=== PATIENT | female | born 1950 | race Hispanic/Latino ===

== ENCOUNTER 2017-10-09 12:26 | Observation (INO) | payer MEDICARE ==
[~2017-10-09] VITALS: Ht 154.9 cm; Wt 85.8 kg
[2017-10-09] MEDS ORDERED: ASPIRIN 81 MG CHEW TAB PO ONE ×2 (12:45→19:45)
[2017-10-09 13:50] LABS: BASOPHILS % 0.4 % (0.0-1.0); EOSINOPHILS # (AUTO) 0.1 (0.0-0.4); EOSINOPHILS % 1.1 % (0.0-6.0); HEMATOCRIT 42.5 % (34.2-44.1); LYMPHOCYTES # (AUTO) 1.8 (1.0-3.2); LYMPHOCYTES % 15.9 % (18.0-39.1); MEAN CORPUSCULAR HEMOGLOBIN 28.3 pg (28-32); MEAN CORPUSCULAR HGB CONC 32.9 g/dL (31-35); MEAN CORPUSCULAR VOLUME 85.9 fL (81-99); MONOCYTES # (AUTO) 0.7 (0.2-0.8); MONOCYTES % 6.2 % (4.4-11.3); NEUTROPHILS # (AUTO) 8.6 (2.1-6.9); PLATELET COUNT 283 x10e3/uL (140-360); RED BLOOD COUNT 4.95 x10e6/uL (3.6-5.1); RED CELL DISTRIBUTION WIDTH 14.1 % (11.7-14.4)
[2017-10-09 14:00] LABS: INR 1.04; PROTHROMBIN TIME 12.8 seconds (11.9-14.5)
[2017-10-09 14:08] LABS: ALANINE AMINOTRANSFERASE 22 IU/L (0-55); ALBUMIN 3.6 g/dL (3.5-5.0); ALBUMIN/GLOBULIN RATIO 0.8 (0.8-2.0); ALKALINE PHOSPHATASE 90 IU/L (40-150); ANION GAP 14.4 mmol/L (8-16); BLOOD UREA NITROGEN 15 mg/dL (7-26); BUN/CREATININE RATIO 19 (6-25); CALCIUM 9.5 mg/dL (8.4-10.2); CARBON DIOXIDE 25 mmol/L (22-29); CHLORIDE 107 mmol/L (98-107); CREATINE KINASE 37 IU/L (29-168); EST GLOMERULAR FILTRATION RATE > 60 ML/MIN (60-); GLUCOSE 113 mg/dL (74-118); MAGNESIUM 2.1 MG/DL (1.3-2.1); POTASSIUM 4.4 mmol/L (3.5-5.1); SODIUM 142 mmol/L (136-145)
--- NOTE | 2017-10-09 15:13 | Diagnostic Imaging Report ---
PROCEDURE: A single AP view of the chest. COMPARISON: None. INDICATIONS: chest tightness FINDINGS: Exam limited by soft tissue attenuation from body habitus Lines/tubes: None. Lungs: The lungs are well inflated and grossly clear. There is no evidence of pneumonia or pulmonary edema. Pleura: There is no pleural effusion or pneumothorax. Heart and mediastinum: Mild prominence of the cardiac silhouette, which may be partly due to portable AP projection. Prominence of the left atrial appendage. Pulmonary vasculature is normal. Bones: No acute bony abnormality. IMPRESSION: 1. exam limited by soft tissue attenuation from body habitus. 2. No consolidation or effusion. 3. Mild prominence of the cardiac silhouette, which could be partly due to AP projection. Prominence of the left atrial appendage. Robin Fenton M.D. Dictated by: Robin Fenton M.D. on 10/09/2017 at 15:17 Electronically approved by: Robin Fenton M.D. on 10/09/2017 at 15:17
[2017-10-09] MEDS ORDERED: DEXTROSE 50% SYRINGE 50 ML IV PRN ×3 (15:45)
[2017-10-09] MEDS ORDERED: MORPHINE SULFATE 2 MG/ML SYR IV PRN (15:45)
[2017-10-09] MEDS ORDERED: INSULIN REGULAR, HUMAN 100 UNIT/1 ML 3ML VIAL SQ SCH ×2 (16:30)
[2017-10-09] MEDS: INSULIN REGULAR, HUMAN 100 UNIT/1 ML 3ML VIAL SQ SCH ×2 (16:30→21:00)
[2017-10-09 16:53] VITALS: BP 119/61
[2017-10-09] MEDS ORDERED: LISINOPRIL10 MG PO (16:53)
[2017-10-09 16:56] VITALS: BP 119/61
[2017-10-09 16:58] VITALS: BP 119/61
[2017-10-09 20:00] VITALS: BP_SYST 127; BP_SYST 130; BP_DIAS 68; BP_DIAS 72
--- NOTE | 2017-10-09 20:36 | History and Physical ---
CLINICAL HISTORY: This is a 67-year-old woman admitted via Dr. Colin Mayer's office and to the emergency room because of chest pains lasting for approximately 10 minutes and because of abnormal EKG showing possible old inferior and posterior wall myocardial infarction. This patient denies any previous myocardial infarction or previous chest pains. She is relatively active. 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 On the day of admission, she was sitting down when she noticed chest burning lasting for approximately 10 minutes rated 5 on a scale of 10, not associated with any nausea, vomiting, diaphoresis or shortness of breath. EKG showed possible old inferior and possible old anterior wall myocardial infarction. He was seen in Dr. Mayer's office, referred to the emergency room and hospitalized. PAST MEDICAL HISTORY: Remarkable for tubal ligation. She is scheduled for hysterectomy. FAMILY HISTORY: Mother had hypertension. Father had stroke. Father had from prostate cancer. Sister had diabetes and . PERSONAL AND SOCIAL HISTORY: Denies smoking, drinking, drug abuse. She was a electronic maintenance supervisor. REVIEW OF SYSTEMS: Remarkable for hyperlipidemia, hypertension, prediabetes. MEDICATIONS AT HOME: Lisinopril 10 mg p.o. daily. REVIEW OF SYSTEMS: Noncontributory. PHYSICAL EXAMINATION GENERAL: She is obese, alert, coherent. VITAL SIGNS: Stable. CARDIAC: Jugular veins are not distended. S1, S2 were regular. There is no appreciable murmur. LUNGS: Clear. ABDOMEN: Soft. Bowel sounds are present. EXTREMITIES: Showed no cyanosis, clubbing, edema. IMPRESSIONS 1. Atypical chest pains lasted for approximately 10 minutes, rated 5 on a scale of 10, described as burning. Not related to exertion, with abnormal EKG showing possible old anterior and inferior wall myocardial infarction, but she has no documentation of such. Consider coronary artery disease. 2. Prediabetes. 3. Hyperlipidemia. 4. Hypertension. 5. Obesity. 6. History of tubal ligation. RECOMMENDATIONS: Nuclear stress test. Job#: [id number] CQ cc:COLIN MAYER MD
[2017-10-09 21:47] LABS: CREATINE KINASE MB 0.7 ng/mL (0-5.0)
[2017-10-10] VITALS: BP 105/59
[2017-10-10 04:00] VITALS: BP 112/62
[2017-10-10 06:55] LABS: CHOL/HDL RATIO 5.3 (3.0-3.6); CHOLESTEROL 201 MD/DL (0-199); CREATINE KINASE 25 IU/L (29-168); HDL CHOLESTEROL 38 MG/DL (40-60); LDL CHOLESTEROL 146 MG/DL (60-130); TRIGLYCERIDES 86 MG/DL (0-149)
[2017-10-10] MEDS: INSULIN REGULAR, HUMAN 100 UNIT/1 ML 3ML VIAL SQ SCH (07:30)
[2017-10-10 07:41] VITALS: BP 136/73
[2017-10-10] MEDS ORDERED: REGADENOSON 0.4 MG/5 ML SYR IV ONE (08:09)
[2017-10-10] MEDS ORDERED: ASPIRIN 325 MG TAB EC PO SCH (09:00)
[2017-10-10] MEDS ORDERED: LISINOPRIL 20 MG TAB PO SCH (09:00)
--- NOTE | 2017-10-10 10:35 | Cardiology Report ---
DATE OF STUDY: October 09, 2017 ECHOCARDIOGRAM M-MODE: Normal chamber wall dimensions. Normal contractility. Normal mitral and aortic valves. No pericardial effusion. SECTOR SCAN: Normal chamber wall dimensions. Normal contractility. Normal mitral, aortic and tricuspid valves. Anterior echo-free space consistent with epicardial fat pad or small anterior pericardial effusion. CARDIAC DOPPLER STUDY WITH COLOR: Trace mitral regurgitation. CONCLUSIONS 1. Small anterior echo-free space measuring 0.2 cm, probably representing epicardial fat pad, although small anterior pericardial effusion cannot be excluded. 2. Trace mitral regurgitation. 3. Left ventricular ejection fraction is approximately 60%. Job#: [id number]
--- NOTE | 2017-10-10 11:10 | Discharge Summary ---
CLINICAL HISTORY: This is a 67-year-old woman admitted via Dr. Colin Mayer's office in the emergency room because of episode of chest pain. Please refer to my previous dictation concerning details of current illness, past medical history, personal and social history, family history, review of systems, physical examination, and initial laboratory studies. HOSPITAL COURSE: Her CBC showed a white count 11,000, hemoglobin was normal at 14 and platelet count 283,000. The cholesterol was 201 with LDL of 146. Electrolytes were normal. Troponin was normal on 3 separate occasions. She underwent Lexiscan nuclear stress test showing no definite ischemic changes. Echocardiogram showed anterior epicardial fat pad versus small pericardial effusion measuring 0.2 cm. The patient was anxious for discharge. Will follow on an outpatient basis. The patient was informed if she has worsening chest pains, she may need to have a cardiac catheterization to be sure. The nuclear images were somewhat inconclusive, but no definite ischemic changes can be determined. She is to follow up with Dr. Mayer and me in 1 week. DISCHARGE DIAGNOSES 1. Atypical moderate chest pains lasting for 10 minutes, rated 5 on a scale of 10 described as a burning sensation with Lexiscan nuclear stress test not showing definite ischemic changes with possible degree of inferior attenuation rather than ischemia, and with echocardiogram showing anterior echo free space of 0.2 cm suggestive of epicardial fat pad with anterior pericardial effusion less likely. 2. Prediabetes. 3. Hyperlipidemia. 4. Hypertension. 5. Obesity. 6. History of tubal ligation. ALEXA PANTOJA MD Job#: [id number] RI cc:COLIN MAYER MD
--- NOTE | 2017-10-10 11:12 | Cardiology Report ---
DATE OF STUDY: LEXISCAN NUCLEAR STRESS TEST Following Lexiscan perfusion images showed diminished counts involving the inferior wall. The rest images showed essentially the same. CONCLUSIONS 1. No definite ischemic changes with possible inferior tissue attenuation and less likely ischemia. 2. No significant ST-segment depression with Lexiscan. 3. No complaints of chest pains with Lexiscan although the patient had low abdominal pain. 4. Normal blood pressure response to Lexiscan. 5. No significant arrhythmias with Lexiscan. Job#: [id number] RI
[2017-10-10 11:26] VITALS: BP 124/71
== END 2017-10-10 11:00 | disposition home or self-care (01) ==
LOC: ER 12:26 → ERHOLD 15:51 → IMCU 16:26
PROVIDERS: ADMIT Internal Medicine Cardiovascular Disease; ATTEND Internal Medicine Cardiovascular Disease
DX: R07.89 Other chest pain (principal); R73.03 Prediabetes; E78.5 Hyperlipidemia, unspecified; I10 Essential (primary) hypertension; E66.9 Obesity, unspecified; Z83.3 Family history of diabetes mellitus; Z80.42 Family history of malignant neoplasm of prostate; Z82.3 Family history of stroke; Z82.49 Family history of ischemic heart disease and other diseases of the circulatory system; Z68.35 Body mass index [BMI] 35.0-35.9, adult
CPT/HCPCS: 36415 ×2; 71045; 78452; 80053; 80061; 82550 ×2; 82553 ×2; 82948 ×2; 83735; 83880; 84484 ×2; 85025; 85610; 85730; 93005; 93017; 93306; 99284; A9502; G0378 ×2

== ENCOUNTER 2018-08-09 23:27 | Observation (INO) | payer MEDICARE ==
[~2018-08-09] VITALS: Ht 154.9 cm; Wt 85.7 kg
[~2018-08-09 23:27] MED LIST: LISINOPRIL10 MG PO
--- OUTSIDE RECORDS SUMMARY | 2018-08-09 23:29 | XMS REPORT | Summary of Care ---
Author Author LEONIDES BENDER M.D. Organization Unknown Address [facility] Phone Unavailable Care Team Providers Care Block Placer Name Role Phone LEONIDES BENDER M.D. Unavailable Unavailable Unavailable Unavailable Functional Status Name Dates Details Functional status health issues are not documented Status: Name Dates Details Cognitive status health issues are not documented Status: Problems Name Dates Details Postmenopausal bleeding (627.1, N95.0) Status: Active Thickened endometrium (793.5, R93.8) Status: Active Ovarian cyst (620.2, N83.209) Status: Active Screening for colon cancer (V76.51, Z12.11) Status: Active Medications Name Dates Details Lisinopril 40 MG Oral Tablet * Start : 10-Oct-2017 Active 30 Tablet Bottle Allergies and Adverse Reactions Name Dates Details No Known Drug Allergies (Allergy) Status: Active Past Medical History Name Dates Details History of High blood pressure (401.9, I10) Status: Resolved Procedures Procedure Dates Details [QLH] CBC (INCLUDES DIFF/PLT) Date: 10-Oct-2017 [QLH] CMP W/EGFR Date: 10-Oct-2017 [QLH] MAGNESIUM Date: 10-Oct-2017 [QLH] CA 125 Date: 10-Oct-2017 [QLH] HEMOGLOBIN A1c Date: 10-Oct-2017 US Pelvis with Pelvis Transvaginal [id number] Date: 10-Oct-2017 History of Tubal Ligation Completed Immunization Name Dates Details Immunizations not documented Family History Name Dates Details No pertinent family history (V49.89, Z78.9) Status: Active Social History Name Dates Details - Status: Name Dates Details Never smoker Never smoker Vital Signs Date Test Result Details [id number] BP Systolic 123 mm[Hg] Status: Comments: Location: RUE; Position: Sitting BP Diastolic 80 mm[Hg] Status: Comments: Location: RUE; Position: Sitting Height 146.99 cm Status: Weight 185 lb Status: Body Mass Index Calculated 38.84 kg/m2 Status: Body Surface Area Calculated 1.76 m2 Status: Temperature 97.6 f Status: Comments: Method: Oral Heart Rate 87 /min Status: Respiration Rate 18 /min Status: Results Date Description Value Details Results not documented Plan of Care Name Dates Details Planned Observations Planned Goals not documented Planned Encounters Screening Colonoscopy Referral Follow-up visit in 2 weeks Interventions Provided Labs/Procedures/Imaging* [QLH] CA 125; To Be Done: 10 Oct 2017 * [QLH] CBC (INCLUDES DIFF/PLT); To Be Done: 10 Oct 2017 * [QLH] CMP W/EGFR; To Be Done: 10 Oct 2017 * [[facility]H] HEMOGLOBIN A1c; To Be Done: 10 Oct 2017 * [QLH] MAGNESIUM; To Be Done: 10 Oct 2017 * US Pelvis with Pelvis Transvaginal [id number]; To Be Done: 10 Oct 2017 Discussion/Summary* Pt is a 67 yo HF with a hx of PMB x2 years. * 1) PMB * -repeat TVUS recommended * -Labs checked as last CA125 was 16.4 in 2016, CBC, CMP, Mg, HgA1c * -Hscope D and C with EUA recommended for assessment of endometrium * 2) Recent hospitalization for cardiac work up * -completion of cardiac workup and clearance will be required prior to going to the OR. * RTC 2 weeks post operatively. * Discussed above with patient (spent 45 minutes face to face). Questions answered. Instructions Name Dates Details Instructions not documented Encounters Appointment; LEONIDES BENDER M.D. Encounter Diagnosis: Problem not documented On: 10-Oct-2017 13:00
--- OUTSIDE RECORDS SUMMARY | 2018-08-09 23:29 | XMS REPORT | Continuity of Care Document ---
Author Author Jarett [facility] Interface Address Unknown Phone Unavailable Problems Problem Status Onset Date Classification Date Reported Comments Source Chest pain Active Problem 10/10/2017 [facility] Medications Medication Details Route Status Patient Instructions Ordering Provider Order Date Source Lisinopril 10 Mg Tablet Daily Active [facility] Allergies, Adverse Reactions, Alerts Substance Category Reaction Severity Reaction type Status Date Reported Comments Source Immunizations Immunization Date Given Site Status Last Updated Comments Source Results Order Name Results Value Reference Range Date Interpretation Comments Source Capillary blood glucose measurement by glucometer (mass/volume) Capillary blood glucose measurement by glucometer (mass/volume) 117 70 - 120 10/10/2017 [facility] Serum or plasma cholesterol in HDL measurement (mass/volume) Serum or plasma cholesterol in HDL measurement (mass/volume) 38 40 - 60 10/10/2017 [facility] Serum or plasma cholesterol in LDL measurement (mass/volume) Serum or plasma cholesterol in LDL measurement (mass/volume) 146 60 - 130 10/10/2017 [facility] Serum or plasma cholesterol measurement (mass/volume) Serum or plasma cholesterol measurement (mass/volume) 201 0 - 199 10/10/2017 [facility] Serum or plasma creatine kinase MB measurement (mass/volume) Serum or plasma creatine kinase MB measurement (mass/volume) 0.60 0 - 5.0 10/10/2017 [facility] Serum or plasma creatine kinase measurement (enzymatic activity/volume) Serum or plasma creatine kinase measurement (enzymatic activity/volume) 25 29 - 168 10/10/2017 [facility] Serum or plasma total cholesterol/cholesterol in HDL mass ratio Serum or plasma total cholesterol/cholesterol in HDL mass ratio 5.3 3.0 - 3.6 10/10/2017 [facility] Serum or plasma triglyceride measurement (mass/volume) Serum or plasma triglyceride measurement (mass/volume) 86 0 - 149 10/10/2017 [facility] Troponin I measurement by highly sensitive enzyme immunoassay Troponin I measurement by highly sensitive enzyme immunoassay null 0 - 0.300 10/10/2017 [facility] Activated partial thromboplastin time (aPTT) in platelet poor plasma bycoagulation assay Activated partial thromboplastin time (aPTT) in platelet poor plasma bycoagulation assay 32.0 23.8 - 35.5 10/09/2017 [facility] Automated blood basophil count (count/volume) Automated blood basophil count (count/volume) 0.0 0.0 - 0.1 10/09/2017 [facility] Automated blood basophil count as percentage of total leukocytes Automated blood basophil count as percentage of total leukocytes 0.4 0.0 - 1.0 10/09/2017 [facility] Automated blood eosinophil count Automated blood eosinophil count 0.1 0.0 - 0.4 10/09/2017 [facility] Automated blood eosinophil count as percentage of total leukocytes Automated blood eosinophil count as percentage of total leukocytes 1.1 0.0 - 6.0 10/09/2017 [facility] Automated blood hematocrit (volume fraction) Automated blood hematocrit (volume fraction) 42.5 34.2 - 44.1 10/09/2017 [facility] Automated blood lymphocyte count as percentage ot total leukocytes Automated blood lymphocyte count as percentage ot total leukocytes 15.9 18.0 - 39.1 10/09/2017 [facility] Automated blood monocyte count as percentage of total leukocytes Automated blood monocyte count as percentage of total leukocytes 6.2 4.4 - 11.3 10/09/2017 [facility] Automated blood neutrophil count Automated blood neutrophil count 8.6 2.1 - 6.9 10/09/2017 [facility] Automated blood platelet count (count/volume) Automated blood platelet count (count/volume) 283 140 - 360 10/09/2017 [facility] Automated blood segmented neutrophil count as percentage of total leukocytes Automated blood segmented neutrophil count as percentage of total leukocytes 76.0 38.7 - 80.0 10/09/2017 [facility] Automated erythrocyte mean corpuscular hemoglobin (mass per erythrocyte) Automated erythrocyte mean corpuscular hemoglobin (mass per erythrocyte) 28.3 28 - 32 10/09/2017 [facility] Automated erythrocyte mean corpuscular hemoglobin concentration measurement (mass/volume) Automated erythrocyte mean corpuscular hemoglobin concentration measurement (mass/volume) 32.9 31 - 35 10/09/2017 [facility] Automated erythrocyte mean corpuscular volume Automated erythrocyte mean corpuscular volume 85.9 81 - 99 10/09/2017 [facility] Blood erythrocytes automated count (number/volume) Blood erythrocytes automated count (number/volume) 4.95 3.6 - 5.1 10/09/2017 [facility] Blood hemoglobin measurement (moles/volume) Blood hemoglobin measurement (moles/volume) 14.0 12.0 - 16.0 10/09/2017 [facility] Blood leukocytes automated count (number/volume) Blood leukocytes automated count (number/volume) 11.34 4.8 - 10.8 10/09/2017 [facility] Blood lymphocytes count (number/volume) Blood lymphocytes count (number/volume) 1.8 1.0 - 3.2 10/09/2017 [facility] Blood monocytes automated count (number/volume) Blood monocytes automated count (number/volume) 0.7 0.2 - 0.8 10/09/2017 [facility] Estimated glomerular filtration rate (GFR) determination Estimated glomerular filtration rate (GFR) determination null 60 10/09/2017 [facility] Glucose measurement Glucose measurement 113 74 - 118 10/09/2017 [facility] INR in Platelet poor plasma by Coagulation assay INR in Platelet poor plasma by Coagulation assay 1.04 10/09/2017 [facility] Plasma globulin measurement (mass/volume) Plasma globulin measurement (mass/volume) 4.4 2.3 - 3.5 10/09/2017 [facility] Prothrombin time (PT) in platelet poor plasma by coagulation assay Prothrombin time (PT) in platelet poor plasma by coagulation assay 12.8 11.9 - 14.5 10/09/2017 [facility] Serum or plasma alanine aminotransferase measurement (enzymatic activity/volume) Serum or plasma alanine aminotransferase measurement (enzymatic activity/volume) 22 0 - 55 10/09/2017 [facility] Serum or plasma albumin measurement (mass/volume) Serum or plasma albumin measurement (mass/volume) 3.6 3.5 - 5.0 10/09/2017 [facility] Serum or plasma albumin/globulin mass ratio Serum or plasma albumin/globulin mass ratio 0.8 0.8 - 2.0 10/09/2017 [facility] Serum or plasma alkaline phosphatase measurement (enzymatic activity/volume) Serum or plasma alkaline phosphatase measurement (enzymatic activity/volume) 90 40 - 150 10/09/2017 [facility] Serum or plasma anion gap Serum or plasma anion gap 14.4 8 - 16 10/09/2017 [facility] Serum or plasma calcium measurement (mass/volume) Serum or plasma calcium measurement (mass/volume) 9.5 8.4 - 10.2 10/09/2017 [facility] Serum or plasma carbon dioxide, total measurement (moles/volume) Serum or plasma carbon dioxide, total measurement (moles/volume) 25 22 - 29 10/09/2017 [facility] Serum or plasma chloride measurement (moles/volume) Serum or plasma chloride measurement (moles/volume) 107 98 - 107 10/09/2017 [facility] Serum or plasma creatinine measurement (mass/volume) Serum or plasma creatinine measurement (mass/volume) 0.80 0.57 - 1.11 10/09/2017 [facility] Serum or plasma magnesium measurement (mass/volume) Serum or plasma magnesium measurement (mass/volume) 2.1 1.3 - 2.1 10/09/2017 [facility] Serum or plasma potassium measurement (moles/volume) Serum or plasma potassium measurement (moles/volume) 4.4 3.5 - 5.1 10/09/2017 [facility] Serum or plasma protein measurement (mass/volume) Serum or plasma protein measurement (mass/volume) 8.0 6.5 - 8.1 10/09/2017 [facility] Serum or plasma sodium measurement (moles/volume) Serum or plasma sodium measurement (moles/volume) 142 136 - 145 10/09/2017 [facility] Serum or plasma total bilirubin measurement (mass/volume) Serum or plasma total bilirubin measurement (mass/volume) 0.5 0.2 - 1.2 10/09/2017 [facility] Serum or plasma urea nitrogen measurement (mass/volume) Serum or plasma urea nitrogen measurement (mass/volume) 15 7 - 26 10/09/2017 [facility] Serum or plasma urea nitrogen/creatinine mass ratio Serum or plasma urea nitrogen/creatinine mass ratio 19 6 - 25 10/09/2017 [facility] Red Cell Distribution Width 14.1 11.7 - 14.4 10/09/2017 [facility] IM GRANULOCYTES % 0.4 0.0 - 1.0 10/09/2017 [facility] Absolute Immature Granulocyte (auto 0.05 0 - 0.1 10/09/2017 [facility] Aspartate Amino Transf (AST/SGOT) 14 5 - 34 10/09/2017 [facility] B-Type Natriuretic Peptide 22.2 0 - 100 10/09/2017 [facility] Vital Signs Vital Sign Value Date Comments Source Encounters Location Location Details Encounter Type Encounter Number Reason For Visit Attending Provider ADM Date DC Date Status Source Discharged Inpatient (obs) [id number] ALEXA PANTOJA MD 10/09/2017 10/10/2017 [facility] Procedures Procedure Code Date Perfomer Comments Source
--- NOTE | 2018-08-10 00:55 | Diagnostic Imaging Report ---
EXAMINATION: CHEST SINGLE (PORTABLE) INDICATION: Shortness of breath. COMPARISON: 10/09/17. FINDINGS: TUBES and LINES: None. LUNGS: Lungs are well inflated. Lungs are clear. There is mild prominence of the central pulmonary vasculature, consistent with pulmonary venous congestion. PLEURA: No pleural effusion or pneumothorax. HEART AND MEDIASTINUM: Cardiac size is mildly enlarged. BONES AND SOFT TISSUES: No acute osseous lesion. Soft tissues are unremarkable. UPPER ABDOMEN: No free air under the diaphragm. IMPRESSION: Cardiomegaly. Mild pulmonary venous congestion. Signed by: Dr. Stephie Porter M.D. on 08/10/2018 12:52 AM
[2018-08-10 01:09] LABS: BASOPHILS % 0.4 % (0.0-1.0); EOSINOPHILS # (AUTO) 0.1 (0.0-0.4); EOSINOPHILS % 0.8 % (0.0-6.0); HEMATOCRIT 41.5 % (34.2-44.1); HEMOGLOBIN 13.4 g/dL (12.0-16.0); LYMPHOCYTES % 10.4 % (18.0-39.1); MEAN CORPUSCULAR HEMOGLOBIN 27.3 pg (28-32); MEAN CORPUSCULAR HGB CONC 32.3 g/dL (31-35); MEAN CORPUSCULAR VOLUME 84.5 fL (81-99); MONOCYTES # (AUTO) 0.8 (0.2-0.8); MONOCYTES % 8.4 % (4.4-11.3); NEUTROPHILS # (AUTO) 7.7 (2.1-6.9); NEUTROPHILS % 79.5 % (38.7-80.0); PLATELET COUNT 264 x10e3/uL (140-360); RED BLOOD COUNT 4.91 x10e6/uL (3.6-5.1); RED CELL DISTRIBUTION WIDTH 14.6 % (11.7-14.4)
[2018-08-10 01:23] LABS: CLARITY,URINE CLEAR (CLEAR); COLOR,URINE YELLOW (YELLOW); LEUKOCYTE ESTERASE ,URINE NEGATIVE (NEGATIVE)
[2018-08-10 01:24] LABS: BILIRUBIN,URINE NEGATIVE (NEGATIVE); KETONES,URINE NEGATIVE (NEGATIVE); NITRITE,URINE NEGATIVE (NEGATIVE); PROTEIN,URINE DIPSTICK NEGATIVE (NEGATIVE); URINE UROBILINOGEN 0.2 mg/dL (0.2 - 1)
[2018-08-10 01:28] LABS: BACTERIA,URINE MANY /HPF; EPITHELIAL CELLS,URINE MANY /LPF; WBC,URINE (MAN) 0-5 /HPF (0-5)
[2018-08-10 01:33] LABS: ALANINE AMINOTRANSFERASE 19 IU/L (0-55); ALBUMIN 3.4 g/dL (3.5-5.0); ALBUMIN/GLOBULIN RATIO 0.8 (0.8-2.0); ALKALINE PHOSPHATASE 97 IU/L (40-150); ANION GAP 13.8 mmol/L (8-16); BLOOD UREA NITROGEN 14 mg/dL (7-26); BUN/CREATININE RATIO 16 (6-25); CALCIUM 9.3 mg/dL (8.4-10.2); CARBON DIOXIDE 22 mmol/L (22-29); CHLORIDE 107 mmol/L (98-107); CREATINE KINASE 65 IU/L (29-168); CREATININE, SERUM 0.86 mg/dL (0.57-1.11); EST GLOMERULAR FILTRATION RATE > 60 ML/MIN (60-); GLUCOSE 128 mg/dL (74-118); POTASSIUM 3.8 mmol/L (3.5-5.1); SODIUM 139 mmol/L (136-145)
[2018-08-10] MEDS ORDERED: ONDANSETRON HCL INJ 2MG/ML 2ML 2 MG/ML VIAL IV PRN (01:45)
[2018-08-10 03:00] VITALS: BP 133/66
--- NOTE | 2018-08-10 03:00 | NUR ---
patient is a new admit that arrived via wheelchair. patient is awake and talking. patient has been assisted into the bed. bed is in the lowest position and call swain is within reach.
[2018-08-10 03:22] VITALS: BP 133/66
--- NOTE | 2018-08-10 07:02 | NUR ---
report given to day nurse. patient is resting comfortably in bed. bed is in lowest position and call swain is within reach. will continue to monitor patient.
--- NOTE | 2018-08-10 07:20 | NUR ---
patient resting in bed, alert with no distress, at bed side, call light in reach, not in any distress
[2018-08-10 07:55] VITALS: BP 142/61
[2018-08-10] MEDS ORDERED: ASPIRIN 81 MG ENTERIC COATED PO SCH (09:00)
[2018-08-10 09:30] VITALS: BP 142/61
[2018-08-10 10:05] LABS: CREATINE KINASE 52 IU/L (29-168)
[2018-08-10 11:36] VITALS: BP 154/67
--- NOTE | 2018-08-10 13:22 | NUR ---
SOCIAL WORK INITIAL ASSESSMENT Aircraft Tool Maker to bedside to discuss plan of care with patient/family. CM/SW role and care transitions discussed. Anticipated discharge plan discussed along with duration of care. CM/SW discussed patients right to make decisions in care. CM/SW work hours given. Patient lives: HOUSE WITH FAMILY Admit/Transfer: VIA ED POA/Emergency contact: JEFRY BIRCH [phone] Current/Previous Home Health: NONE PCP/Follow-up Care: GERALDINE Current/Previous DME: NONE Other Services: NONE Employment Status: RETIRED Areas of Concerns: NONE Referral Needs: NONE Education Needs: NONE IMM/NULL given and signed (if applicable):NA Goal for discharge: RETURN HOME CM/SW left business card at the bedside with contact information. Name and number was also written on the patients whiteboard. Patient verbalized understanding of discussion. CM will follow-up with ongoing discharge and transition of care needs.
[2018-08-10] MEDS ORDERED: ALBUTEROL/IPRATROPIUM 3 ML NEB NEB PRN (15:00)
--- NOTE | 2018-08-10 15:09 | NUR ---
H&P cc: sob HPI: 68yoF, PCP , developed DANGELO. Started overnight; no prior; no leg edema; no cp. PMH PreDM, HTN, HLD, Obesity PSHx: tubal ligation Allergies; see emr FH/SH; ; no cigs/etoh Meds; see MAR ROS: no f/c/sN/V/D/CLAIRE/cp/dizziness/vision changes/skin rash v/s; revd PE: nad anicteric ns1s2; no m good bs; no w soft nt nd no e/t a&ox3; peacock skin dry n. affect labs/meds; revd A/P:68yoF Acute bronchitis Cardiomegaly Obesity BMI 35.7 HTN HLD PLAN nebs; O2; f/u labs hab1c/lipids lovenox/pepcid Bora Gonzalez MD, PhD.
[2018-08-10 15:57] VITALS: BP 147/65
[2018-08-10] MEDS ORDERED: FAMOTIDINE 20 MG TAB PO SCH (16:30)
[2018-08-10] MEDS ORDERED: ENOXAPARIN SOD INJ 40 MG/0.4 ML SYR SC SCH (17:00)
[2018-08-10] MEDS ORDERED: ONDANSETRON HCL 4 MG ORAL DISINTEGRATING TAB PO PRN (17:00)
[2018-08-10] MEDS ORDERED: PROVENTIL HFA6.7 GM IH (17:44)
[2018-08-10] MEDS ORDERED: ASPIRIN EC81 MG PO (17:44)
--- NOTE | 2018-08-10 18:14 | NUR ---
Discharge summary Principal dx: Acute bronchitis SEcondary Dx: HTN, HLD, Obesity cc: sob HPI: see H&P Hospital course: 68yoF Acute bronchitis Cardiomegaly Obesity BMI 35.7 HTN HLD PLAN nebs; O2; f/u labs hab1c/lipids lovenox/pepcid LVEF 50-55%; EKG ok; home on zpak and albuterol inhaler. d/c home stable f/u pcp 1 week d/c>35mins Bora Gonzalez MD, PhD.
--- NOTE | 2018-08-10 18:16 | NUR ---
Addendum to d/c summary: D/C home with metoprolol 25mg BID Bora Gonzalez MD, PhD.
[2018-08-11 08:54] LABS: CHOL/HDL RATIO 4.4 (3.0-3.6)
== END 2018-08-10 18:40 | disposition home or self-care (01) ==
LOC: ER 23:27 → ERHOLD 08-10 01:49 → IMCU 08-10 03:10
PROVIDERS: ADMIT Internal Medicine; ATTEND Internal Medicine
DX: J20.9 Acute bronchitis, unspecified (principal); I10 Essential (primary) hypertension; E78.5 Hyperlipidemia, unspecified; E66.9 Obesity, unspecified; Z68.37 Body mass index [BMI] 37.0-37.9, adult; I51.7 Cardiomegaly; R73.03 Prediabetes
CPT/HCPCS: 36415; 71045; 80053; 80061; 81001; 82550; 82553; 83880; 84484; 85025; 93005; 93306; 99284; G0378; J1650

== ENCOUNTER 2018-10-23 14:01 | Emergency (ER) | payer SELFPAY ==
[~2018-10-23] VITALS: Ht 154.9 cm; Wt 85.7 kg
[~2018-10-23 14:01] MED LIST changes: +ASPIRIN EC81 MG PO; +PROVENTIL HFA6.7 GM IH
--- OUTSIDE RECORDS SUMMARY | 2018-10-23 14:04 | XMS REPORT | Continuity of Care Document ---
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 Phone [facility] [employer] Unavailable Unavailable Problems Problem Status Onset Date Classification Date Reported Comments Source Chest pain Active Problem 10/10/2017 [facility] Medications Medication Details Route Status Patient Instructions Ordering Provider Order Date Source Lisinopril 10 Mg Tablet Daily Active [facility] Allergies, Adverse Reactions, Alerts No Known Medication Allergies Immunizations No Data Provided for This Section Results Order Name Results Value Reference Range Date Interpretation Comments Source Capillary blood glucose measurement by glucometer (mass/volume) Capillary blood glucose measurement by glucometer (mass/volume) 117 70 - 120 10/10/2017 [facility] Serum or plasma cholesterol in HDL measurement (mass/volume) Serum or plasma cholesterol in HDL measurement (mass/volume) 38 40 - 60 10/10/2017 [facility] Serum or plasma cholesterol in LDL measurement (mass/volume) Serum or plasma cholesterol in LDL measurement (mass/volume) 146 60 - 130 10/10/2017 [facility] Serum or plasma cholesterol measurement (mass/volume) Serum or plasma cholesterol measurement (mass/volume) 201 0 - 199 10/10/2017 [facility] Serum or plasma creatine kinase MB measurement (mass/volume) Serum or plasma creatine kinase MB measurement (mass/volume) 0.60 0 - 5.0 10/10/2017 [facility] Serum or plasma creatine kinase measurement (enzymatic activity/volume) Serum or plasma creatine kinase measurement (enzymatic activity/volume) 25 29 - 168 10/10/2017 [facility] Serum or plasma total cholesterol/cholesterol in HDL mass ratio Serum or plasma total cholesterol/cholesterol in HDL mass ratio 5.3 3.0 - 3.6 10/10/2017 [facility] Serum or plasma triglyceride measurement (mass/volume) Serum or plasma triglyceride measurement (mass/volume) 86 0 - 149 10/10/2017 [facility] Troponin I measurement by highly sensitive enzyme immunoassay Troponin I measurement by highly sensitive enzyme immunoassay <0.001 0 - 0.300 10/10/2017 [facility] Activated partial thromboplastin time (aPTT) in platelet poor plasma bycoagulation assay Activated partial thromboplastin time (aPTT) in platelet poor plasma bycoagulation assay 32.0 23.8 - 35.5 10/09/2017 [facility] Automated blood basophil count (count/volume) Automated blood basophil count (count/volume) 0.0 0.0 - 0.1 10/09/2017 [facility] Automated blood basophil count as percentage of total leukocytes Automated blood basophil count as percentage of total leukocytes 0.4 0.0 - 1.0 10/09/2017 [facility] Automated blood eosinophil count Automated blood eosinophil count 0.1 0.0 - 0.4 10/09/2017 [facility] Automated blood eosinophil count as percentage of total leukocytes Automated blood eosinophil count as percentage of total leukocytes 1.1 0.0 - 6.0 10/09/2017 [facility] Automated blood hematocrit (volume fraction) Automated blood hematocrit (volume fraction) 42.5 34.2 - 44.1 10/09/2017 [facility] Automated blood lymphocyte count as percentage ot total leukocytes Automated blood lymphocyte count as percentage ot total leukocytes 15.9 18.0 - 39.1 10/09/2017 [facility] Automated blood monocyte count as percentage of total leukocytes Automated blood monocyte count as percentage of total leukocytes 6.2 4.4 - 11.3 10/09/2017 [facility] Automated blood neutrophil count Automated blood neutrophil count 8.6 2.1 - 6.9 10/09/2017 [facility] Automated blood platelet count (count/volume) Automated blood platelet count (count/volume) 283 140 - 360 10/09/2017 [facility] Automated blood segmented neutrophil count as percentage of total leukocytes Automated blood segmented neutrophil count as percentage of total leukocytes 76.0 38.7 - 80.0 10/09/2017 [facility] Automated erythrocyte mean corpuscular hemoglobin (mass per erythrocyte) Automated erythrocyte mean corpuscular hemoglobin (mass per erythrocyte) 28.3 28 - 32 10/09/2017 [facility] Automated erythrocyte mean corpuscular hemoglobin concentration measurement (mass/volume) Automated erythrocyte mean corpuscular hemoglobin concentration measurement (mass/volume) 32.9 31 - 35 10/09/2017 [facility] Automated erythrocyte mean corpuscular volume Automated erythrocyte mean corpuscular volume 85.9 81 - 99 10/09/2017 [facility] Blood erythrocytes automated count (number/volume) Blood erythrocytes automated count (number/volume) 4.95 3.6 - 5.1 10/09/2017 [facility] Blood hemoglobin measurement (moles/volume) Blood hemoglobin measurement (moles/volume) 14.0 12.0 - 16.0 10/09/2017 [facility] Blood leukocytes automated count (number/volume) Blood leukocytes automated count (number/volume) 11.34 4.8 - 10.8 10/09/2017 [facility] Blood lymphocytes count (number/volume) Blood lymphocytes count (number/volume) 1.8 1.0 - 3.2 10/09/2017 [facility] Blood monocytes automated count (number/volume) Blood monocytes automated count (number/volume) 0.7 0.2 - 0.8 10/09/2017 [facility] Estimated glomerular filtration rate (GFR) determination Estimated glomerular filtration rate (GFR) determination >60 60 10/09/2017 [facility] Glucose measurement Glucose measurement 113 74 - 118 10/09/2017 [facility] INR in Platelet poor plasma by Coagulation assay INR in Platelet poor plasma by Coagulation assay 1.04 10/09/2017 [facility] Plasma globulin measurement (mass/volume) Plasma globulin measurement (mass/volume) 4.4 2.3 - 3.5 10/09/2017 [facility] Prothrombin time (PT) in platelet poor plasma by coagulation assay Prothrombin time (PT) in platelet poor plasma by coagulation assay 12.8 11.9 - 14.5 10/09/2017 [facility] Serum or plasma alanine aminotransferase measurement (enzymatic activity/volume) Serum or plasma alanine aminotransferase measurement (enzymatic activity/volume) 22 0 - 55 10/09/2017 [facility] Serum or plasma albumin measurement (mass/volume) Serum or plasma albumin measurement (mass/volume) 3.6 3.5 - 5.0 10/09/2017 [facility] Serum or plasma albumin/globulin mass ratio Serum or plasma albumin/globulin mass ratio 0.8 0.8 - 2.0 10/09/2017 [facility] Serum or plasma alkaline phosphatase measurement (enzymatic activity/volume) Serum or plasma alkaline phosphatase measurement (enzymatic activity/volume) 90 40 - 150 10/09/2017 [facility] Serum or plasma anion gap Serum or plasma anion gap 14.4 8 - 16 10/09/2017 [facility] Serum or plasma calcium measurement (mass/volume) Serum or plasma calcium measurement (mass/volume) 9.5 8.4 - 10.2 10/09/2017 [facility] Serum or plasma carbon dioxide, total measurement (moles/volume) Serum or plasma carbon dioxide, total measurement (moles/volume) 25 22 - 29 10/09/2017 [facility] Serum or plasma chloride measurement (moles/volume) Serum or plasma chloride measurement (moles/volume) 107 98 - 107 10/09/2017 [facility] Serum or plasma creatinine measurement (mass/volume) Serum or plasma creatinine measurement (mass/volume) 0.80 0.57 - 1.11 10/09/2017 [facility] Serum or plasma magnesium measurement (mass/volume) Serum or plasma magnesium measurement (mass/volume) 2.1 1.3 - 2.1 10/09/2017 [facility] Serum or plasma potassium measurement (moles/volume) Serum or plasma potassium measurement (moles/volume) 4.4 3.5 - 5.1 10/09/2017 [facility] Serum or plasma protein measurement (mass/volume) Serum or plasma protein measurement (mass/volume) 8.0 6.5 - 8.1 10/09/2017 [facility] Serum or plasma sodium measurement (moles/volume) Serum or plasma sodium measurement (moles/volume) 142 136 - 145 10/09/2017 [facility] Serum or plasma total bilirubin measurement (mass/volume) Serum or plasma total bilirubin measurement (mass/volume) 0.5 0.2 - 1.2 10/09/2017 [facility] Serum or plasma urea nitrogen measurement (mass/volume) Serum or plasma urea nitrogen measurement (mass/volume) 15 7 - 26 10/09/2017 [facility] Serum or plasma urea nitrogen/creatinine mass ratio Serum or plasma urea nitrogen/creatinine mass ratio 19 6 - 25 10/09/2017 [facility] Red Cell Distribution Width 14.1 11.7 - 14.4 10/09/2017 [facility] IM GRANULOCYTES % 0.4 0.0 - 1.0 10/09/2017 [facility] Absolute Immature Granulocyte (auto 0.05 0 - 0.1 10/09/2017 [facility] Aspartate Amino Transf (AST/SGOT) 14 5 - 34 10/09/2017 [facility] B-Type Natriuretic Peptide 22.2 0 - 100 10/09/2017 [facility] Pathology Reports No Data Provided for This Section Diagnostic Reports No Data Provided for This Section Consultation Notes No Data Provided for This Section Discharge Summaries No Data Provided for This Section History and Physicals No Data Provided for This Section Vital Signs No Data Provided for This Section Encounters Location Location Details Encounter Type Encounter Number Reason For Visit Attending Provider ADM Date DC Date Status Source Discharged Inpatient (obs) [id number] ALEXA PANTOJA MD 10/09/2017 10/10/2017 [facility] Procedures No Data Provided for This Section Assessment and Plan No Data Provided for This Section Plan of Care Plan of Care Date Source Discharge Date 10/10/17 11:00am Disposition HOME, SELF-CARE Instructions/Education Provided Chest Pain - Noncardiac Chest Pain - Chest Wall Prescriptions See Medication Section Referrals COLIN CHANDLER MD (Internal Medicine) Order Date: 5-7 Days Entered Date: 10/10/2017 10:32am Address: [address] [place] [address] [place] [id number] ALEXA PANTOJA MD (Cardiology) Order Date: 5-7 Days Entered Date: 10/10/2017 10:32am Address: [address] [place] [address] [place] [id number] 10/10/2017 [facility] Social History Social History Date Source Social History Problem Response Recorded Date/Time Onset Date Status Hx Psychiatric Problems No 10/09/2017 4:48pm Not Applicable Not Applicable Hx Eating Disorder No 10/09/2017 4:48pm Not Applicable Not Applicable Hx Substance Use Disorder No 10/09/2017 4:48pm Not Applicable Not Applicable Hx Depression No 10/09/2017 4:48pm Not Applicable Not Applicable Hx Alcohol Use No 10/09/2017 4:48pm Not Applicable Not Applicable Hx Substance Use Treatment No 10/09/2017 4:48pm Not Applicable Not Applicable Hx Physical Abuse No 10/09/2017 4:48pm Not Applicable Not Applicable Smoking Status Start Date Stop Date Never Smoker 10/10/2017 [facility] Family History No Data Provided for This Section Advance Directives Order Name Results Value Date Source Advance Directives Advance Directives Directive Response Recorded Date/Time Does the patient have an advance directive? No 10/09/17 4:48pm If yes, is advance directive on file with [facility]? No 10/09/17 4:48pm If not on file with [facility] will patient provide a copy? No 10/09/17 4:48pm Do you have a Directive to Physician? No 10/09/17 1:14pm Do you have a Medical Power of [employer]? No 10/09/17 1:14pm Do you have an out of hospital Do Not Resuscitate Order? No 10/09/17 1:14pm Do you have any special needs we should be aware of? No 10/09/17 1:14pm Do you have a support person here with you today? Yes 10/09/17 1:14pm Did patient receive Notice of Privacy Practices? Yes 10/09/17 1:14pm Did patient receive patient rights and responsibilities? Yes 10/09/17 1:14pm 10/10/2017 [facility] Functional Status No Data Provided for This Section
[2018-10-23 19:32] VITALS: BP 140/66
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
== END 2018-10-23 20:01 | disposition home or self-care (01) ==
LOC: ER 14:01
DX: M54.5 Low back pain (principal); S39.012A Strain of muscle, fascia and tendon of lower back, initial encounter; S20.219A Contusion of unspecified front wall of thorax, initial encounter; V43.52XA Car driver injured in collision with other type car in traffic accident, initial encounter; Y92.488 Other paved roadways as the place of occurrence of the external cause; I10 Essential (primary) hypertension; E11.9 Type 2 diabetes mellitus without complications
CPT/HCPCS: 71046; 93005; 99283

== ENCOUNTER 2021-09-07 02:16 | Emergency (ER) | payer MEDICARE ==
[~2021-09-07] VITALS: Ht 154.9 cm; Wt 85.7 kg
== END 2021-09-07 02:36 | disposition home or self-care (01) ==
LOC: ER 02:20
DX: I10 Essential (primary) hypertension (principal); E11.9 Type 2 diabetes mellitus without complications
CPT/HCPCS: 99282

== ENCOUNTER 2021-11-21 08:54 | Inpatient (IN) | payer MEDICARE ==
[~2021-11-21] VITALS: Ht 154.9 cm; Wt 83.0 kg
[2021-11-21] MEDS ORDERED: SODIUM CHLORIDE 0.9% 1000ML 1,000 ML IV STA (09:13)
[2021-11-21] MEDS ORDERED: ONDANSETRON HCL INJ 2MG/ML 2ML 2 MG/ML VIAL IV STA (09:13)
[2021-11-21 09:32] LABS: BASOPHILS % 0.5 % (0.0-1.0); EOSINOPHILS % 0.2 % (0.0-6.0); HEMATOCRIT 38.4 % (34.2-44.1); HEMOGLOBIN 12.1 g/dL (12.0-16.0); LYMPHOCYTES # (AUTO) 1.3 (1.0-3.2); LYMPHOCYTES % 21.5 % (18.0-39.1); MEAN CORPUSCULAR HEMOGLOBIN 26.2 pg (28-32); MEAN CORPUSCULAR HGB CONC 31.5 g/dL (31-35); MEAN CORPUSCULAR VOLUME 83.3 fL (81-99); MONOCYTES # (AUTO) 0.5 (0.2-0.8); MONOCYTES % 8.5 % (4.4-11.3); NEUTROPHILS # (AUTO) 4.2 (2.1-6.9); NEUTROPHILS % 68.8 % (38.7-80.0); PLATELET COUNT 239 x10e3/uL (140-360); RED BLOOD COUNT 4.61 x10e6/uL (3.6-5.1); RED CELL DISTRIBUTION WIDTH 15.7 % (11.7-14.4)
[2021-11-21] MEDS ORDERED: Morphine 4mg INJECTION 4 MG/ML INJ IV STA (09:35)
[2021-11-21 09:44] LABS: CLARITY,URINE CLEAR (CLEAR); COLOR,URINE YELLOW (YELLOW); KETONES,URINE NEGATIVE (NEGATIVE); LEUKOCYTE ESTERASE ,URINE NEGATIVE (NEGATIVE); NITRITE,URINE NEGATIVE (NEGATIVE); PROTEIN,URINE DIPSTICK 1+ (NEGATIVE)
[2021-11-21 09:45] LABS: URINE UROBILINOGEN 0.2 mg/dL (0.2 - 1)
[2021-11-21 09:49] LABS: INR 1.05; PARTIAL THROMBOPLASTIN TIME 27.7 seconds (23.8-35.5); PROTHROMBIN TIME 14.7 seconds (11.9-14.5)
[2021-11-21] MEDS ORDERED: Morphine 4mg INJECTION 4 MG/ML INJ ONE (09:51)
[2021-11-21 09:57] LABS: ALANINE AMINOTRANSFERASE 108 IU/L (0-55); ALBUMIN 2.9 g/dL (3.5-5.0); ALBUMIN/GLOBULIN RATIO 0.7 (0.8-2.0); ALKALINE PHOSPHATASE 188 IU/L (40-150); ANION GAP 13.2 mmol/L (8-16); BLOOD UREA NITROGEN 14 mg/dL (7-26); BUN/CREATININE RATIO 10 (6-25); CALCIUM 7.9 mg/dL (8.4-10.2); CARBON DIOXIDE 24 mmol/L (22-29); CHLORIDE 107 mmol/L (98-107); CREATINE KINASE 157 IU/L (29-168); CREATININE, SERUM 1.42 mg/dL (0.57-1.11); GLUCOSE 139 mg/dL (74-118); LIPASE 41 U/L (8-78); MAGNESIUM 1.7 MG/DL (1.3-2.1); POTASSIUM 3.2 mmol/L (3.5-5.1); SODIUM 141 mmol/L (136-145)
[2021-11-21] MEDS ORDERED: POTASSIUM CHLORIDE 20 MEQ TAB CR PO STA (10:17)
[2021-11-21 10:18] LABS: BACTERIA,URINE RARE /HPF; EPITHELIAL CELLS,URINE FEW /LPF; TRANSITIONAL EPI CELLS,URINE FEW; WBC,URINE (MAN) 0-5 /HPF (0-5)
[2021-11-21] MEDS ORDERED: ASPIRIN 81 MG CHEW TAB PO ONE (10:30)
[2021-11-21] MEDS ORDERED: IOPAMIDOL 370 MG/ML 100 ML INFUS..BTL INJ ONE (10:42)
[2021-11-21] MEDS ORDERED: HEPARIN 25,000 UNIT 1,100 UNIT in DEXTROSE 5% 250ML 250 ML IV SCH ×2 (10:45→11:00)
[2021-11-21] MEDS ORDERED: HEPARIN SOD (PORCINE) 5,000 UNIT/ML VIAL IV ONE ×2 (11:00→11:30)
[2021-11-21] MEDS ORDERED: NITROGLYCERIN 0.4 MG SUBL SL PRN (11:30)
[2021-11-21] MEDS ORDERED: ONDANSETRON HCL INJ 2MG/ML 2ML 2 MG/ML VIAL IV PRN (11:30)
[2021-11-21] MEDS ORDERED: Morphine 2mg Syringe 2 MG/ML SYR IV PRN (11:30)
[2021-11-21] MEDS ORDERED: HEPARIN 25,000 UNIT DRIP IV ONE (11:36)
[2021-11-21] MEDS: HEPARIN 25,000 UNIT 1,100 UNIT in DEXTROSE 5% 250ML 250 ML IV SCH (11:38)
[2021-11-21] MEDS: FAMOTIDINE 20 MG/2 ML VIAL IV SCH ×2 (11:45→23:40)
[2021-11-21 12:41] VITALS: BP 161/78
[2021-11-21 12:45] VITALS: BP 161/78
[2021-11-21 13:11] VITALS: BP 153/63
[2021-11-21] MEDS: SODIUM CHLORIDE 0.45% 1,000 ML IV SCH (16:53)
[2021-11-21 17:00] VITALS: BP 187/69
[2021-11-21 20:00] VITALS: BP 172/54
[2021-11-21 20:18] VITALS: BP 172/54
[2021-11-22] VITALS (7 sets, daily range): BP systolic 136–164; BP diastolic 52–70
[2021-11-22 04:55] LABS: BASOPHILS # (AUTO) 0.1 (0.0-0.1); BASOPHILS % 0.8 % (0.0-1.0); EOSINOPHILS % 0.5 % (0.0-6.0); HEMATOCRIT 36.2 % (34.2-44.1); HEMOGLOBIN 11.9 g/dL (12.0-16.0); LYMPHOCYTES # (AUTO) 1.2 (1.0-3.2); LYMPHOCYTES % 15.4 % (18.0-39.1); MEAN CORPUSCULAR HEMOGLOBIN 26.5 pg (28-32); MEAN CORPUSCULAR HGB CONC 32.9 g/dL (31-35); MEAN CORPUSCULAR VOLUME 80.6 fL (81-99); MONOCYTES # (AUTO) 0.7 (0.2-0.8); MONOCYTES % 8.9 % (4.4-11.3); NEUTROPHILS # (AUTO) 5.9 (2.1-6.9); NEUTROPHILS % 73.9 % (38.7-80.0); PLATELET COUNT 237 x10e3/uL (140-360); RED BLOOD COUNT 4.49 x10e6/uL (3.6-5.1); RED CELL DISTRIBUTION WIDTH 15.9 % (11.7-14.4)
[2021-11-22 05:20] LABS: ALBUMIN 2.5 g/dL (3.5-5.0); ALBUMIN/GLOBULIN RATIO 0.6 (0.8-2.0); ANION GAP 12.4 mmol/L (8-16); CALCIUM 7.7 mg/dL (8.4-10.2); CHOL/HDL RATIO 5.2 (3.0-3.6); CREATININE, SERUM 1.18 mg/dL (0.57-1.11); POTASSIUM 3.4 mmol/L (3.5-5.1)
[2021-11-22 05:58] LABS: CREATINE KINASE MB 6.3 ng/mL (0-5.0)
[2021-11-22] MEDS: ASPIRIN 81 MG ENTERIC COATED PO SCH ×2 (09:00→10:34)
[2021-11-22] MEDS: CARVEDILOL 12.5 MG TAB PO SCH ×2 (09:08→17:36)
[2021-11-22] MEDS: FUROSEMIDE INJ 10 MG/ML 4 ML VIAL IV SCH (10:20)
[2021-11-22] MEDS: HEPARIN 25,000 UNIT 1,100 UNIT in DEXTROSE 5% 250ML 250 ML IV SCH (10:30)
[2021-11-22] MEDS ORDERED: HEPARIN 25,000 UNIT DRIP IV ONE (10:38)
[2021-11-22] MEDS: FAMOTIDINE 20 MG/2 ML VIAL IV SCH ×2 (11:35→23:11)
[2021-11-22 12:36] LABS: CREATINE KINASE MB 7.8 ng/mL (0-5.0)
[2021-11-22] MEDS: SODIUM CHLORIDE 0.45% 1,000 ML IV SCH (12:51)
[2021-11-22] MEDS ORDERED: POTASSIUM CHLORIDE 20 MEQ TAB CR PO ONE (13:00)
[2021-11-22] MEDS ORDERED: ALBUTEROL SULFATE HFA 8GM INHALATION AEROSOL INH PRN (18:15)
[2021-11-23] VITALS (9 sets, daily range): BP systolic 127–163; BP diastolic 57–109
[2021-11-23 00:30] LABS: CREATINE KINASE MB 7.6 ng/mL (0-5.0)
[2021-11-23] MEDS: SODIUM CHLORIDE 0.45% 1,000 ML IV SCH ×2 (05:08→17:20)
[2021-11-23 06:45] LABS: BASOPHILS # (AUTO) 0.1 (0.0-0.1); BASOPHILS % 0.6 % (0.0-1.0); EOSINOPHILS # (AUTO) 0.3 (0.0-0.4); EOSINOPHILS % 3.2 % (0.0-6.0); HEMATOCRIT 36.7 % (34.2-44.1); HEMOGLOBIN 11.5 g/dL (12.0-16.0); LYMPHOCYTES # (AUTO) 1.4 (1.0-3.2); LYMPHOCYTES % 16.6 % (18.0-39.1); MEAN CORPUSCULAR HEMOGLOBIN 26.1 pg (28-32); MEAN CORPUSCULAR HGB CONC 31.3 g/dL (31-35); MEAN CORPUSCULAR VOLUME 83.2 fL (81-99); MONOCYTES # (AUTO) 0.6 (0.2-0.8); MONOCYTES % 7.5 % (4.4-11.3); NEUTROPHILS # (AUTO) 5.8 (2.1-6.9); NEUTROPHILS % 71.4 % (38.7-80.0); PLATELET COUNT 238 x10e3/uL (140-360); RED BLOOD COUNT 4.41 x10e6/uL (3.6-5.1); RED CELL DISTRIBUTION WIDTH 15.8 % (11.7-14.4)
[2021-11-23 07:13] LABS: ALBUMIN 2.4 g/dL (3.5-5.0); ANION GAP 15.3 mmol/L (8-16); BILIRUBIN,DIRECT 0.8 mg/dL (0.0-0.5); CALCIUM 7.8 mg/dL (8.4-10.2); CREATININE, SERUM 1.15 mg/dL (0.57-1.11); POTASSIUM 3.3 mmol/L (3.5-5.1)
[2021-11-23 07:48] LABS: CREATINE KINASE MB 7.8 ng/mL (0-5.0)
[2021-11-23] MEDS: CARVEDILOL 12.5 MG TAB PO SCH (09:01)
[2021-11-23] MEDS: ASPIRIN 81 MG ENTERIC COATED PO SCH (09:01)
[2021-11-23] MEDS: FUROSEMIDE INJ 10 MG/ML 4 ML VIAL IV SCH ×2 (09:01→17:19)
[2021-11-23] MEDS ORDERED: GUAIFENESIN/CODEINE 5 ML LIQD PO PRN (09:30)
[2021-11-23] MEDS: FAMOTIDINE 20 MG/2 ML VIAL IV SCH ×2 (12:23→23:24)
[2021-11-23 12:46] LABS: CREATINE KINASE MB 8.3 ng/mL (0-5.0)
[2021-11-23] MEDS: HEPARIN 25,000 UNIT 1,100 UNIT in DEXTROSE 5% 250ML 250 ML IV SCH (17:13)
[2021-11-24] VITALS (31 sets, daily range): BP systolic 118–182; BP diastolic 41–96
[2021-11-24 07:02] LABS: BASOPHILS # (AUTO) 0.1 (0.0-0.1); BASOPHILS % 0.7 % (0.0-1.0); EOSINOPHILS # (AUTO) 0.3 (0.0-0.4); EOSINOPHILS % 3.8 % (0.0-6.0); HEMATOCRIT 37.9 % (34.2-44.1); HEMOGLOBIN 12.7 g/dL (12.0-16.0); LYMPHOCYTES # (AUTO) 1.4 (1.0-3.2); LYMPHOCYTES % 18.9 % (18.0-39.1); MEAN CORPUSCULAR HEMOGLOBIN 26.5 pg (28-32); MEAN CORPUSCULAR HGB CONC 33.5 g/dL (31-35); MONOCYTES # (AUTO) 0.6 (0.2-0.8); MONOCYTES % 8.5 % (4.4-11.3); NEUTROPHILS # (AUTO) 4.8 (2.1-6.9); NEUTROPHILS % 67.4 % (38.7-80.0); PLATELET COUNT 248 x10e3/uL (140-360); RED CELL DISTRIBUTION WIDTH 15.7 % (11.7-14.4)
[2021-11-24 07:28] LABS: ALBUMIN 2.5 g/dL (3.5-5.0); ANION GAP 15.4 mmol/L (8-16); BILIRUBIN,DIRECT 0.5 mg/dL (0.0-0.5); CALCIUM 7.8 mg/dL (8.4-10.2); CREATININE, SERUM 1.19 mg/dL (0.57-1.11)
[2021-11-24 07:31] LABS: POTASSIUM 2.4 mmol/L (3.5-5.1)
[2021-11-24] MEDS ORDERED: POTASSIUM CHLORIDE 20MEQ/100ML 100 ML IV ONE ×4 (08:00→22:00)
[2021-11-24] MEDS: FUROSEMIDE INJ 10 MG/ML 4 ML VIAL IV SCH ×2 (09:00→17:54)
[2021-11-24] MEDS ORDERED: HEPARIN SOD/SOD CHLORIDE 2,000 ML ONE (09:10)
[2021-11-24] MEDS ORDERED: SODIUM CHLORIDE 0.9% 1000ML 1,000 ML ONE (09:10)
[2021-11-24] MEDS ORDERED: LIDOCAINE HCL 1% LOCAL INJ 20 ML VIAL ONE (09:10)
[2021-11-24] MEDS ORDERED: IOPAMIDOL 370 MG/ML 100 ML INFUS..BTL INJ ONE (09:10)
[2021-11-24] MEDS ORDERED: POTASSIUM CHLORIDE 20 MEQ TAB CR PO ONE ×2 (09:32→10:00)
[2021-11-24] MEDS ORDERED: MIDAZOLAM HCL 2 MG/2 ML VIAL ONE (09:32)
[2021-11-24] MEDS ORDERED: VERAPAMIL HCL 2.5 MG/ML 2 ML VIAL ONE (09:32)
[2021-11-24] MEDS ORDERED: FENTANYL CITRATE/PF 100MCG/2 ML INJ ONE (09:33)
[2021-11-24] MEDS: FAMOTIDINE 20 MG/2 ML VIAL IV SCH ×2 (11:30→23:40)
[2021-11-24] MEDS: AMLODIPINE BESYLATE 5 MG TAB PO SCH (15:24)
[2021-11-24] MEDS: ASPIRIN 81 MG ENTERIC COATED PO SCH (15:24)
[2021-11-24] MEDS: SODIUM CHLORIDE 0.45% 1,000 ML IV SCH (15:25)
[2021-11-24 17:34] LABS: POTASSIUM 3.1 mmol/L (3.5-5.1)
[2021-11-24] MEDS: HEPARIN 25,000 UNIT 1,100 UNIT in DEXTROSE 5% 250ML 250 ML IV SCH (18:17)
[2021-11-24] MEDS ORDERED: MAGNESIUM SULFATE 2GM/50ML 50 ML IV ONE (20:00)
[2021-11-25] VITALS (24 sets, daily range): BP systolic 92–147; BP diastolic 46–101
[2021-11-25] MEDS: SODIUM CHLORIDE 0.45% 1,000 ML IV SCH (02:26)
[2021-11-25 08:32] LABS: ALBUMIN 2.4 g/dL (3.5-5.0); BILIRUBIN,DIRECT 0.4 mg/dL (0.0-0.5)
[2021-11-25] MEDS: AMLODIPINE BESYLATE 5 MG TAB PO SCH (08:48)
[2021-11-25] MEDS: FUROSEMIDE INJ 10 MG/ML 4 ML VIAL IV SCH ×2 (08:48→17:11)
[2021-11-25] MEDS: ASPIRIN 81 MG ENTERIC COATED PO SCH (08:48)
[2021-11-25] MEDS: LORATADINE 10 MG TAB PO SCH (08:49)
[2021-11-25] MEDS ORDERED: MIDAZOLAM HCL 2 MG/2 ML VIAL ONE (10:41)
[2021-11-25] MEDS ORDERED: FENTANYL CITRATE/PF 100MCG/2 ML INJ ONE (10:42)
[2021-11-25] MEDS: FAMOTIDINE 20 MG/2 ML VIAL IV SCH ×2 (12:29→23:36)
[2021-11-25 15:06] LABS: ALBUMIN 2.6 g/dL (3.5-5.0); ALBUMIN/GLOBULIN RATIO 0.5 (0.8-2.0); ANION GAP 16.9 mmol/L (8-16); CALCIUM 7.7 mg/dL (8.4-10.2); CREATININE, SERUM 1.08 mg/dL (0.57-1.11)
[2021-11-25 15:11] LABS: POTASSIUM 2.9 mmol/L (3.5-5.1)
[2021-11-25] MEDS ORDERED: POTASSIUM CHLORIDE 20 MEQ TAB CR PO ONE (16:10)
[2021-11-25] MEDS: HEPARIN 25,000 UNIT 1,100 UNIT in DEXTROSE 5% 250ML 250 ML IV SCH (17:52)
[2021-11-26] VITALS (18 sets, daily range): BP systolic 86–141; BP diastolic 46–107
[2021-11-26] MEDS: SODIUM CHLORIDE 0.45% 1,000 ML IV SCH (02:38)
[2021-11-26 09:00] LABS: ALBUMIN 2.7 g/dL (3.5-5.0); BILIRUBIN,DIRECT 0.4 mg/dL (0.0-0.5)
[2021-11-26 09:02] LABS: ALBUMIN 2.7 g/dL (3.5-5.0); ALBUMIN/GLOBULIN RATIO 0.5 (0.8-2.0); ANION GAP 18.3 mmol/L (8-16); CALCIUM 7.7 mg/dL (8.4-10.2); CREATININE, SERUM 1.17 mg/dL (0.57-1.11); POTASSIUM 3.3 mmol/L (3.5-5.1)
[2021-11-26] MEDS: LORATADINE 10 MG TAB PO SCH (09:06)
[2021-11-26] MEDS: ASPIRIN 81 MG ENTERIC COATED PO SCH (09:06)
[2021-11-26] MEDS: AMLODIPINE BESYLATE 5 MG TAB PO SCH (09:06)
[2021-11-26] MEDS: FUROSEMIDE INJ 10 MG/ML 4 ML VIAL IV SCH (09:09)
[2021-11-26] MEDS ORDERED: POTASSIUM CHLORIDE 20 MEQ TAB CR PO STA (09:37)
[2021-11-26] MEDS ORDERED: POTASSIUM CHLORIDE 20MEQ/100ML 200 ML IV ONE (09:45)
[2021-11-26] MEDS: FAMOTIDINE 20 MG/2 ML VIAL IV SCH ×2 (12:28→23:29)
[2021-11-26] MEDS: HEPARIN 25,000 UNIT 1,100 UNIT in DEXTROSE 5% 250ML 250 ML IV SCH (12:33)
[2021-11-27] VITALS (7 sets, daily range): BP systolic 126–144; BP diastolic 52–61
[2021-11-27 06:31] LABS: BASOPHILS # (AUTO) 0.1 (0.0-0.1); BASOPHILS % 0.9 % (0.0-1.0); EOSINOPHILS # (AUTO) 0.2 (0.0-0.4); EOSINOPHILS % 3.3 % (0.0-6.0); HEMATOCRIT 37.2 % (34.2-44.1); HEMOGLOBIN 11.9 g/dL (12.0-16.0); LYMPHOCYTES # (AUTO) 1.2 (1.0-3.2); LYMPHOCYTES % 17.5 % (18.0-39.1); MEAN CORPUSCULAR HEMOGLOBIN 25.9 pg (28-32); MONOCYTES # (AUTO) 0.6 (0.2-0.8); MONOCYTES % 8.2 % (4.4-11.3); NEUTROPHILS # (AUTO) 4.9 (2.1-6.9); NEUTROPHILS % 69.7 % (38.7-80.0); PLATELET COUNT 249 x10e3/uL (140-360); RED BLOOD COUNT 4.59 x10e6/uL (3.6-5.1)
[2021-11-27 06:54] LABS: ALBUMIN 2.6 g/dL (3.5-5.0); ALBUMIN/GLOBULIN RATIO 0.6 (0.8-2.0); ANION GAP 15.2 mmol/L (8-16); CALCIUM 7.5 mg/dL (8.4-10.2); CREATININE, SERUM 1.26 mg/dL (0.57-1.11); POTASSIUM 3.2 mmol/L (3.5-5.1)
[2021-11-27] MEDS: ASPIRIN 81 MG ENTERIC COATED PO SCH (09:00)
[2021-11-27 09:11] LABS: ALBUMIN 2.5 g/dL (3.5-5.0); BILIRUBIN,DIRECT 0.3 mg/dL (0.0-0.5)
[2021-11-27] MEDS: FUROSEMIDE INJ 10 MG/ML 4 ML VIAL IV SCH (09:34)
[2021-11-27] MEDS: LORATADINE 10 MG TAB PO SCH (09:34)
[2021-11-27] MEDS: AMLODIPINE BESYLATE 5 MG TAB PO SCH (09:34)
[2021-11-27] MEDS: HEPARIN 25,000 UNIT 1,100 UNIT in DEXTROSE 5% 250ML 250 ML IV SCH (09:45)
[2021-11-27] MEDS ORDERED: POTASSIUM CHLORIDE 20 MEQ TAB CR PO STA (11:24)
[2021-11-27] MEDS: FAMOTIDINE 20 MG/2 ML VIAL IV SCH ×2 (11:30→23:12)
[2021-11-28] VITALS (7 sets, daily range): BP systolic 132–153; BP diastolic 42–71
[2021-11-28 05:47] LABS: BASOPHILS # (AUTO) 0.1 (0.0-0.1); BASOPHILS % 0.6 % (0.0-1.0); EOSINOPHILS # (AUTO) 0.2 (0.0-0.4); EOSINOPHILS % 2.9 % (0.0-6.0); HEMATOCRIT 38.4 % (34.2-44.1); LYMPHOCYTES # (AUTO) 1.6 (1.0-3.2); LYMPHOCYTES % 20.4 % (18.0-39.1); MEAN CORPUSCULAR HEMOGLOBIN 26.1 pg (28-32); MEAN CORPUSCULAR HGB CONC 31.3 g/dL (31-35); MEAN CORPUSCULAR VOLUME 83.7 fL (81-99); MONOCYTES # (AUTO) 0.6 (0.2-0.8); MONOCYTES % 7.5 % (4.4-11.3); NEUTROPHILS # (AUTO) 5.3 (2.1-6.9); PLATELET COUNT 269 x10e3/uL (140-360); RED BLOOD COUNT 4.59 x10e6/uL (3.6-5.1); RED CELL DISTRIBUTION WIDTH 16.1 % (11.7-14.4)
[2021-11-28 05:59] LABS: ANION GAP 16.2 mmol/L (8-16); CALCIUM 7.6 mg/dL (8.4-10.2); CREATININE, SERUM 1.12 mg/dL (0.57-1.11); POTASSIUM 3.2 mmol/L (3.5-5.1)
[2021-11-28 06:14] LABS: ALBUMIN 2.5 g/dL (3.5-5.0); BILIRUBIN,DIRECT 0.4 mg/dL (0.0-0.5)
[2021-11-28] MEDS ORDERED: POTASSIUM CHLORIDE 20MEQ/100ML 100 ML IV ONE (08:30)
[2021-11-28] MEDS: FUROSEMIDE INJ 10 MG/ML 4 ML VIAL IV SCH (08:38)
[2021-11-28] MEDS: ASPIRIN 81 MG ENTERIC COATED PO SCH (08:47)
[2021-11-28] MEDS: LORATADINE 10 MG TAB PO SCH (08:47)
[2021-11-28] MEDS: AMLODIPINE BESYLATE 5 MG TAB PO SCH (08:47)
[2021-11-28] MEDS ORDERED: ONDANSETRON HCL 4 MG ORAL DISINTEGRATING TAB PO PRN (11:00)
[2021-11-28] MEDS: FAMOTIDINE 20 MG/2 ML VIAL IV SCH ×2 (11:16→23:38)
[2021-11-28] MEDS ORDERED: EPHEDRINE SULFATE INJ 50 MG/ML VIAL ONE (12:19)
[2021-11-28] MEDS ORDERED: POVIDONE IODINE 0.05% 0.05 % ML PO ONE (12:19)
[2021-11-28] MEDS ORDERED: PHENYLEPHRINE HCL 1% 10 MG/ML VIAL ONE (12:19)
[2021-11-28] MEDS ORDERED: SEVOFLURANE INHAL SOLN 250 ML PEN BTL ONE (12:19)
[2021-11-28] MEDS ORDERED: ONDANSETRON HCL INJ 2MG/ML 2ML 2 MG/ML VIAL ONE (12:19)
[2021-11-28] MEDS ORDERED: LIDOCAINE HCL 2% LOCAL INJ 5 ML SDV VIAL INJ ONE (12:19)
[2021-11-28] MEDS ORDERED: PROPOFOL IV EMULSION 10 MG/ML 20 ML VIAL ONE (12:19)
[2021-11-28] MEDS ORDERED: NEOSTIGMINE 1 MG/ML 10ML VIAL ONE (12:19)
[2021-11-28] MEDS ORDERED: DEXAMETHASONE SOD PHOS INJ 4 MG/ML SDV ONE (12:19)
[2021-11-28] MEDS ORDERED: ROCURONIUM BROMIDE 10 MG/ML 5ML VIAL IV ONE (12:19)
[2021-11-28] MEDS ORDERED: GLYCOPYRROLATE INJ 0.2 MG/ML VIAL ONE (12:19)
[2021-11-28] MEDS ORDERED: FENTANYL CITRATE/PF 100MCG/2 ML INJ ONE (12:39)
[2021-11-28] MEDS ORDERED: LIDOCAINE 1% W/EPINEPHRINE 20 ML VIAL ONE (13:26)
[2021-11-28] MEDS ORDERED: BUPIVACAINE 0.25% 30ML SDV ONE (13:26)
[2021-11-28] MEDS ORDERED: ACETAMINOPHEN 1000 MG/100 ML 100 ML IV ONE (14:23)
[2021-11-28] MEDS ORDERED: SODIUM CHLORIDE 0.9% 250ML 250 ML ONE (23:56)
[2021-11-29 08:51] VITALS: BP 133/49
[2021-11-29] MEDS: SENNOSIDES 8.6 MG TAB PO SCH (09:00)
[2021-11-29] MEDS: FUROSEMIDE INJ 10 MG/ML 4 ML VIAL IV SCH (09:26)
[2021-11-29] MEDS: LORATADINE 10 MG TAB PO SCH (09:28)
[2021-11-29] MEDS: AMLODIPINE BESYLATE 5 MG TAB PO SCH (09:28)
[2021-11-29] MEDS: ASPIRIN 81 MG ENTERIC COATED PO SCH (09:29)
[2021-11-29 10:18] LABS: ANION GAP 17.5 mmol/L (8-16); CALCIUM 7.9 mg/dL (8.4-10.2); CREATININE, SERUM 1.06 mg/dL (0.57-1.11); POTASSIUM 3.5 mmol/L (3.5-5.1)
[2021-11-29] MEDS: FAMOTIDINE 20 MG/2 ML VIAL IV SCH (11:30)
[2021-11-29 12:54] VITALS: BP 128/59
[2021-11-29] MEDS: Morphine 4mg INJECTION 4 MG/ML INJ IV PRN (16:00)
[2021-11-29 16:35] VITALS: BP 131/60
[2021-11-29 20:00] VITALS: BP 129/57
[2021-11-29 21:00] VITALS: BP 129/57
[2021-11-30] VITALS (8 sets, daily range): BP systolic 114–135; BP diastolic 38–69
[2021-11-30] MEDS: FAMOTIDINE 20 MG/2 ML VIAL IV SCH (00:29)
[2021-11-30] MEDS: Morphine 4mg INJECTION 4 MG/ML INJ IV PRN (01:23)
[2021-11-30] MEDS: FUROSEMIDE INJ 10 MG/ML 4 ML VIAL IV SCH (09:24)
[2021-11-30] MEDS: LORATADINE 10 MG TAB PO SCH (09:25)
[2021-11-30] MEDS: AMLODIPINE BESYLATE 5 MG TAB PO SCH (09:26)
[2021-11-30] MEDS: ASPIRIN 81 MG ENTERIC COATED PO SCH (09:27)
[2021-11-30] MEDS: SENNOSIDES 8.6 MG TAB PO SCH (09:27)
[2021-11-30] MEDS: FAMOTIDINE 20 MG TAB PO SCH ×2 (11:45→20:41)
[2021-11-30] MEDS ORDERED: BISACODYL 10 MG SUPP PR ONE (13:30)
[2021-12-01 01:00] VITALS: BP 130/47
[2021-12-01 04:00] VITALS: BP 123/46
[2021-12-01] MEDS ORDERED: PANTOPRAZOLE SOD 40 MG TABEC PO SCH (07:30)
[2021-12-01] MEDS: ASPIRIN 81 MG ENTERIC COATED PO SCH (08:31)
[2021-12-01] MEDS: SENNOSIDES 8.6 MG TAB PO SCH (08:31)
[2021-12-01] MEDS: LORATADINE 10 MG TAB PO SCH (08:31)
[2021-12-01] MEDS: AMLODIPINE BESYLATE 5 MG TAB PO SCH (08:31)
[2021-12-01] MEDS ORDERED: LORATADINE10 MG PO (08:36)
[2021-12-01] MEDS ORDERED: CEPHALEXIN500 MG PO (08:36)
[2021-12-01] MEDS ORDERED: FAMOTIDINE20 MG PO (08:36)
[2021-12-01] MEDS ORDERED: NORVASC5 MG PO (08:36)
[2021-12-01] MEDS ORDERED: ONDANSETRON ODT4 MG PO (08:36)
[2021-12-01] MEDS ORDERED: SENNA LAX8.6 MG PO (08:36)
[2021-12-01] MEDS ORDERED: METRONIDAZOLE500 MG PO (08:36)
[2021-12-01 08:39] LABS: BASOPHILS # (AUTO) 0.1 (0.0-0.1); EOSINOPHILS # (AUTO) 0.3 (0.0-0.4); EOSINOPHILS % 4.2 % (0.0-6.0); HEMATOCRIT 38.3 % (34.2-44.1); HEMOGLOBIN 11.7 g/dL (12.0-16.0); LYMPHOCYTES # (AUTO) 1.3 (1.0-3.2); LYMPHOCYTES % 18.6 % (18.0-39.1); MEAN CORPUSCULAR HEMOGLOBIN 25.9 pg (28-32); MEAN CORPUSCULAR HGB CONC 30.5 g/dL (31-35); MEAN CORPUSCULAR VOLUME 84.7 fL (81-99); MONOCYTES # (AUTO) 0.6 (0.2-0.8); MONOCYTES % 8.8 % (4.4-11.3); NEUTROPHILS # (AUTO) 4.6 (2.1-6.9); NEUTROPHILS % 66.5 % (38.7-80.0); PLATELET COUNT 295 x10e3/uL (140-360); RED BLOOD COUNT 4.52 x10e6/uL (3.6-5.1); RED CELL DISTRIBUTION WIDTH 15.9 % (11.7-14.4)
[2021-12-01] MEDS: FAMOTIDINE 20 MG TAB PO SCH (08:47)
[2021-12-01 09:00] LABS: ANION GAP 17.1 mmol/L (8-16); CALCIUM 7.6 mg/dL (8.4-10.2); CREATININE, SERUM 1.14 mg/dL (0.57-1.11); POTASSIUM 3.1 mmol/L (3.5-5.1)
[2021-12-01 09:46] VITALS: BP 128/76
[2021-12-01] MEDS: FUROSEMIDE INJ 10 MG/ML 4 ML VIAL IV SCH (10:25)
[2021-12-01] MEDS ORDERED: POTASSIUM CHLORIDE 10MEQ EA PO ONE (11:00)
[2021-12-01 11:37] VITALS: BP 127/60
[2021-12-01 12:00] VITALS: BP 127/60
[2021-12-01] MEDS ORDERED: ELIQUIS5 MG PO (14:34)
[2021-12-02] MEDS ORDERED: FUROSEMIDE 40 MG TAB PO SCH (09:00)
== END 2021-12-01 15:34 | disposition home or self-care (01) | DRG 417 ==
LOC: ER 09:01 → ERHOLD 11:22 → ICU 12:41 → MED/SURG2 11-26 15:45
PROVIDERS: ADMIT Internal Medicine; ATTEND Internal Medicine
PROC: 4A023N7 Measurement of Cardiac Sampling and Pressure, Left Heart, Percutaneous Approach (ICD-10-PCS; 2021-11-24)
PROC: B2111ZZ Fluoroscopy of Multiple Coronary Arteries using Low Osmolar Contrast (ICD-10-PCS; 2021-11-24)
PROC: B2151ZZ Fluoroscopy of Left Heart using Low Osmolar Contrast (ICD-10-PCS; 2021-11-24)
PROC: 06H03DZ Insertion of Intraluminal Device into Inferior Vena Cava, Percutaneous Approach (ICD-10-PCS; principal; 2021-11-25)
PROC: 0FT44ZZ Resection of Gallbladder, Percutaneous Endoscopic Approach (ICD-10-PCS; 2021-11-28)
DX: K80.00 Calculus of gallbladder with acute cholecystitis without obstruction (principal); I21.A1 Myocardial infarction type 2; I31.3 Pericardial effusion (noninflammatory); I82.411 Acute embolism and thrombosis of right femoral vein; N17.9 Acute kidney failure, unspecified; N13.30 Unspecified hydronephrosis; I27.20 Pulmonary hypertension, unspecified; K76.0 Fatty (change of) liver, not elsewhere classified; I10 Essential (primary) hypertension; E11.9 Type 2 diabetes mellitus without complications; E78.5 Hyperlipidemia, unspecified; E66.9 Obesity, unspecified; Z20.822 Contact with and (suspected) exposure to COVID-19; R59.9 Enlarged lymph nodes, unspecified; R74.01 Elevation of levels of liver transaminase levels; E87.6 Hypokalemia; I48.91 Unspecified atrial fibrillation; Z90.49 Acquired absence of other specified parts of digestive tract; Z68.34 Body mass index [BMI] 34.0-34.9, adult; K76.9 Liver disease, unspecified
CPT/HCPCS: 0223U; 36415; 37191; 71045; 74176; 76705; 76937; 78226; 80048; 80053; 80061; 80076; 81001; 82550; 82553; 82948; 83690; 83735; 83880; 84132; 84484; 85025; 85610; 85730; 87086; 88304; 93005; 93306; 93458; 93970; 93971; 94799; 99152; 99153; 99251; 99284; A9537; C1769; C1880; C1887; J1100; J1644; J1940; J2001; J2250; J2270; J2370; J2405; J2543; J2710; J3010; J3475; J3480; J7030; J7050; Q9967

== ENCOUNTER 2021-12-16 12:51 | Emergency (ER) | payer MEDICARE, OTHER ==
[~2021-12-16] VITALS: Ht 154.9 cm; Wt 83.0 kg
[~2021-12-16 12:51] MED LIST changes: +CEPHALEXIN500 MG PO; +ELIQUIS5 MG PO; +FAMOTIDINE20 MG PO; +LORATADINE10 MG PO; +METRONIDAZOLE500 MG PO; +NORVASC5 MG PO; +ONDANSETRON ODT4 MG PO; +SENNA LAX8.6 MG PO
== END 2021-12-16 13:43 | disposition left against medical advice (07) ==
LOC: ER 13:15
DX: I82.411 Acute embolism and thrombosis of right femoral vein (principal); I10 Essential (primary) hypertension; E11.9 Type 2 diabetes mellitus without complications; E78.5 Hyperlipidemia, unspecified
CPT/HCPCS: 99282